=== PATIENT | male | born 1955 | race Caucasian/White ===

== ENCOUNTER → 2022-04-23 | Day surgery (SDC) | payer OTHER | LOC: SPEC 09:15 | PROC: 02HV33Z Insertion of Infusion Device into Superior Vena Cava, Percutaneous Approach (ICD-10-PCS; principal; 2022-04-23) | DX: L03.311 Cellulitis of abdominal wall (principal); B95.62 Methicillin resistant Staphylococcus aureus infection as the cause of diseases classified elsewhere | CPT/HCPCS: 36569; C1751 ==